=== PATIENT | female | born 2000 | race Caucasian/White ===

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

== ENCOUNTER 2020-04-29 16:32 | Emergency (ER) | payer BC ==
[~2020-04-29] VITALS: Ht 175.3 cm; Wt 99.8 kg
[~2020-04-29 16:32] MED LIST changes: +PREDNISONE20 MG PO; +VENTOLIN HFA18 GM INH
== END 2020-04-29 18:39 | disposition home or self-care (01) ==
LOC: ED 16:32
DX: S80.811A Abrasion, right lower leg, initial encounter (principal); W19.XXXA Unspecified fall, initial encounter
CPT/HCPCS: 99283

== ENCOUNTER 2022-07-16 20:47 | Emergency (ER) | payer OTHER ==
[~2022-07-16] VITALS: Ht 175.3 cm; Wt 103.0 kg
== END 2022-07-16 23:33 | disposition home or self-care (01) ==
LOC: ED 20:47
DX: J20.9 Acute bronchitis, unspecified (principal); Z20.822 Contact with and (suspected) exposure to COVID-19
CPT/HCPCS: 87502; 99283; A9270; U0003

== ENCOUNTER 2022-11-23 21:09 | Emergency (ER) | payer OTHER ==
[~2022-11-23] VITALS: Ht 175.3 cm; Wt 99.8 kg
[2022-11-23] MEDS ORDERED: ONDANSETRON ODT8 MG PO (22:50)
[2022-11-23] MEDS ORDERED: CYCLOBENZAPRINE10 MG PO (22:50)
== END 2022-11-23 23:24 | disposition home or self-care (01) ==
LOC: ED 21:09
DX: R05.9 Cough, unspecified (principal); R11.2 Nausea with vomiting, unspecified; B97.4 Respiratory syncytial virus as the cause of diseases classified elsewhere; Z20.822 Contact with and (suspected) exposure to COVID-19
CPT/HCPCS: 36415; 71045; 80048; 85025; 87502; 96374; 99283-25; A9270; C9803; J2405; J7121; U0003

== ENCOUNTER 2023-07-25 09:59 | Emergency (ER) | payer OTHER ==
[~2023-07-25] VITALS: Ht 175.3 cm; Wt 102.6 kg
[~2023-07-25 09:59] MED LIST changes: +CYCLOBENZAPRINE10 MG PO; +ONDANSETRON ODT8 MG PO
[2023-07-25 10:22] LABS: BASOPHILS 0.4 % (0-2); EOSINOPHILS 4.7 % (0-6); HEMATOCRIT 44.3 % (35.0-50.0); HEMOGLOBIN 14.8 g/dL (12.0-18.0); LYMPHOCYTES 19.4 % (24-44); MCH 29.7 (27-36); MCHC 33.5 g/dl (30-36); MCV 88.6 fl (81-99); MONOCYTES 5.3 % (0-12); NEUTROPHILS 70.2 % (39-80); PLATELET COUNT 282 K/uL (140-440); RDW 13.2 (10.5-15.0)
[2023-07-25 10:36] LABS: ALBUMIN 3.7 g/dL (3.4-5.0); ANION GAP 16.2 (7-21); BILIRUBIN, TOTAL 0.6 ng/dL (0.2-1.0); BUN/CREATININE RATIO 8.97 (6.0-28.6); CREATININE, SERUM 0.78 mg/dL (0.55-1.02); POTASSIUM 3.2 mmol/L (3.5-5.1); PROTEIN, TOTAL 7.4 g/dL (6.4-8.2)
[2023-07-25 11:03] LABS: INFLUENZA B NAA NEGATIVE (NEGATIVE); RESPIRATORY SYNCYTIAL VIR NAA NEGATIVE (NEGATIVE)
[2023-07-25] MEDS ORDERED: ONDANSETRON ODT8 MG PO (11:44)
[2023-07-25 12:02] VITALS: BP 139/78
== END 2023-07-25 12:02 | disposition home or self-care (01) ==
LOC: ED 09:59
PROVIDERS: Emergency Medicine
DX: B34.9 Viral infection, unspecified (principal); Z20.822 Contact with and (suspected) exposure to COVID-19
CPT/HCPCS: 36415; 80053; 83690; 85025; 87502; 96361; 96374; 96376; 99284-25; C9803; J2405; J7030; U0002

== ENCOUNTER 2024-09-12 02:36 | Emergency (ER) | payer OTHER ==
[~2024-09-12] VITALS: Ht 175.3 cm; Wt 94.1 kg
[2024-09-12] MEDS ORDERED: MACROBID 100 M100 MG PO (02:56)
[2024-09-12] MEDS ORDERED: PHENAZOPYRIDINE HCL 95 MG TAB PO ONE (03:00)
[2024-09-12] MEDS ORDERED: NITROFURANTOIN MONOHYD MACROCR 100 MG CAP PO ONE (03:00)
[2024-09-12 03:03] LABS: COLLECTION TYPE, URINE CLEAN CATCH
[2024-09-12 03:10] VITALS: BP 130/78
[2024-09-12 03:10] LABS: CRYSTALS, URINE NONE SEEN (0-1+); EPITHELIAL CELLS, URINE SQUAMOUS 3+ /lpf (0-1+)
[2024-09-12 03:11] LABS: BACTERIA, URINE RARE /hpf (negative); CASTS, URINE HYALINE 1+ \\lpf
[2024-09-12 03:12] LABS: REFLEX CULTURE, URINE No (No)
== END 2024-09-12 03:08 | disposition home or self-care (01) ==
LOC: ED 02:36
PROVIDERS: Internal Medicine
DX: N39.0 Urinary tract infection, site not specified (principal)
CPT/HCPCS: 81001; 84703; 99283

== ENCOUNTER 2024-10-26 11:37 | Emergency (ER) | payer OTHER ==
[~2024-10-26] VITALS: Ht 175.3 cm; Wt 93.0 kg
[~2024-10-26 11:37] MED LIST changes: +MACROBID 100 M100 MG PO
[2024-10-26] MEDS ORDERED: VENTOLIN HFA18 GM INH (11:51)
[2024-10-26] MEDS ORDERED: CEPHALEXIN MONOHYDRATE 500 MG CAP PO ONE (12:45)
[2024-10-26] MEDS ORDERED: HYDROCODONE/ACETA 7.5/325 TAB PO ONE (12:45)
[2024-10-26 13:56] VITALS: BP 107/70
[2024-10-26] MEDS ORDERED: HYDROCODON-ACE1 EA10 PO (14:14)
[2024-10-26] MEDS ORDERED: CEPHALEXIN500 M1 PO (14:14)
== END 2024-10-26 14:52 | disposition home or self-care (01) ==
LOC: ED 11:37
DX: S62.613B Displaced fracture of proximal phalanx of left middle finger, initial encounter for open fracture (principal); S66.222A Laceration of extensor muscle, fascia and tendon of left thumb at wrist and hand level, initial encounter; W23.0XXA Caught, crushed, jammed, or pinched between moving objects, initial encounter; J45.909 Unspecified asthma, uncomplicated; Z79.899 Other long term (current) drug therapy
CPT/HCPCS: 73140; A9270

== ENCOUNTER 2024-11-19 10:59 | Emergency (ER) | payer OTHER ==
[~2024-11-19] VITALS: Ht 175.3 cm; Wt 89.8 kg
[~2024-11-19 10:59] MED LIST changes: +CEPHALEXIN500 M1 PO; +HYDROCODON-ACE1 EA10 PO
--- OUTSIDE RECORDS SUMMARY | 2024-11-19 11:06 | XMS ---
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 E.D. VISIT COUNT (12 MO.) 4 [facility] TOTAL 5 NOTE: Visits indicate total known visits. ED/UCC VISIT TRACKING (12 MO.) 11/19/2024 11:00 [facility] TYPE: Emergency COMPLAINT: - POST OP PROBLEM 10/29/2024 16:46 [facility] TYPE: Emergency COMPLAINT: - WOUND CHECK 10/26/2024 23:54 [facility] TYPE: Emergency DIAGNOSES: - Displaced fracture of neck of unspecified metacarpal bone, initial encounter for open fracture - L MIDDLE FINGER 10/26/2024 11:37 [facility] TYPE: Emergency COMPLAINT: - LATERATION DIAGNOSES: - Caught, crushed, jammed, or pinched between moving objects, initial encounter - Displaced fracture of proximal phalanx of left middle finger, initial encounter for open fracture - Laceration of extensor muscle, fascia and tendon of left thumb at wrist and hand level, initial encounter - Other assisted (current) drug therapy - Unspecified asthma, uncomplicated 09/12/2024 02:36 [facility] TYPE: Emergency COMPLAINT: - UTI DIAGNOSES: - Urgency of urination - Urinary tract infection, site not specified INPATIENT VISIT TRACKING (12 MO.) No inpatient visits to display in this time frame [id number]
[2024-11-19] MEDS ORDERED: OXYCODONE HCL5 MG PO (11:13)
[2024-11-19] MEDS ORDERED: ONDANSETRON 4 MG TAB ODT SL ONE (11:45)
[2024-11-19 11:50] VITALS: BP 113/81
== END 2024-11-19 11:52 | disposition home or self-care (01) ==
LOC: ED 10:59
DX: A08.4 Viral intestinal infection, unspecified (principal); J45.909 Unspecified asthma, uncomplicated; Z98.890 Other specified postprocedural states
CPT/HCPCS: 99283; A9270

== ENCOUNTER 2024-12-12 11:29 | Emergency (ER) | payer OTHER ==
[~2024-12-12] VITALS: Ht 175.3 cm; Wt 93.9 kg
[~2024-12-12 11:29] MED LIST changes: +OXYCODONE HCL5 MG PO
--- OUTSIDE RECORDS SUMMARY | 2024-12-12 11:36 | XMS ---
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 E.D. VISIT COUNT (12 MO.) 5 [facility] TOTAL 6 NOTE: Visits indicate total known visits. ED/UCC VISIT TRACKING (12 MO.) 12/12/2024 11:30 [facility] TYPE: Emergency COMPLAINT: - WOUND CHECK 11/19/2024 11:00 [facility] TYPE: Emergency COMPLAINT: - POST OP PROBLEM DIAGNOSES: - Diarrhea, unspecified - Other specified postprocedural states - Unspecified asthma, uncomplicated - Viral intestinal infection, unspecified 10/29/2024 16:46 [facility] TYPE: Emergency COMPLAINT: - WOUND CHECK 10/26/2024 23:54 [facility] TYPE: Emergency DIAGNOSES: - Displaced fracture of [...] visits to display in this time frame [id number]
[2024-12-12 13:39] VITALS: BP 116/70
== END 2024-12-12 13:39 | disposition home or self-care (01) ==
LOC: ED 11:29
DX: Z48.01 Encounter for change or removal of surgical wound dressing (principal); J45.909 Unspecified asthma, uncomplicated; Z79.899 Other long term (current) drug therapy
CPT/HCPCS: 99282

== ENCOUNTER 2025-01-02 09:42 | Emergency (ER) | payer OTHER ==
[~2025-01-02] VITALS: Ht 175.3 cm; Wt 88.5 kg
--- OUTSIDE RECORDS SUMMARY | 2025-01-02 09:49 | XMS ---
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 E.D. VISIT COUNT (12 MO.) 6 [facility] TOTAL 7 NOTE: Visits indicate total known visits. ED/UCC VISIT TRACKING (12 MO.) 01/02/2025 09:42 [facility] TYPE: Emergency COMPLAINT: - VOMITING 12/12/2024 11:30 [facility] TYPE: Emergency COMPLAINT: - WOUND CHECK DIAGNOSES: - Encounter for change or removal of surgical wound dressing - Other alf (current) drug therapy - Unspecified asthma, uncomplicated 11/19/2024 11:00 [facility] TYPE: Emergency COMPLAINT: - POST OP PROBLEM DIAGNOSES: - Diarrhea, unspecified - Other specified postprocedural states - Unspecified asthma, uncomplicated - Viral intestinal infection, unspecified 10/29/2024 16:46 [facility] TYPE: Emergency COMPLAINT: - WOUND CHECK 10/26/2024 23:54 [facility] TYPE: Emergency DIAGNOSES: - Displaced [...] and hand level, initial encounter - Other alf (current) drug therapy - Unspecified asthma, uncomplicated 09/12/2024 02:36 [facility] TYPE: Emergency COMPLAINT: - UTI DIAGNOSES: - Urgency of urination - Urinary tract infection, site not specified INPATIENT VISIT TRACKING (12 MO.) No inpatient visits to display in this time frame [id number]
[2025-01-02] MEDS ORDERED: ALBUTEROL/IPRATROPIUM 3 ML NEB INH ONE (10:15)
[2025-01-02] MEDS ORDERED: SODIUM CHLORIDE 0.9% 1,000 ML IV PRN (10:15)
[2025-01-02] MEDS ORDERED: ondansetron HCL 4 MG/2 ML VIAL IV ONE (10:15)
[2025-01-02 10:23] LABS: BASOPHILS 0.6 % (0-2); EOSINOPHILS 2.2 % (0-6); HEMATOCRIT 41.9 % (35.0-50.0); HEMOGLOBIN 14.9 g/dL (12.0-18.0); LYMPHOCYTES 17.2 % (24-44); MCH 31.3 (27-36); MCHC 35.5 g/dl (30-36); MCV 88.2 fl (81-99); MONOCYTES 7.6 % (0-12); NEUTROPHILS 72.4 % (39-80); PLATELET COUNT 245 K/uL (140-440); RBC 4.75 M/ul (4.3-5.7); RDW 12.5 (10.5-15.0)
[2025-01-02 10:38] LABS: ALBUMIN 3.6 g/dL (3.4-5.0); ALBUMIN/GLOBULIN RATIO 0.95 (1.1-2.4); ANION GAP 16.1 (7-21); BILIRUBIN, TOTAL 0.6 mg/dL (0.2-1.0); BUN/CREATININE RATIO 8.45 (6.0-28.6); CORONAVIRUS COVID-19 AG NEGATIVE (NEGATIVE); CREATININE, SERUM 0.71 mg/dL (0.55-1.02); INFLUENZA A AG NEGATIVE (NEGATIVE); INFLUENZA B AG NEGATIVE (NEGATIVE); POTASSIUM 3.1 mmol/L (3.5-5.1); PROTEIN, TOTAL 7.4 g/dL (6.4-8.2)
[2025-01-02] MEDS ORDERED: POTASSIUM CHLORIDE 20 MEQ/15 ML CUP PO ONE (11:30)
[2025-01-02 12:33] LABS: BILIRUBIN, URINE POSITIVE (negative); BLOOD/HGB, URINE TRACE-I (Negative); KETONE, URINE >=80 (Negative); LEUK ESTERASE, URINE NEGATIVE (negative); NITRITE, URINE NEGATIVE (negative)
[2025-01-02 12:40] LABS: EPITHELIAL CELLS, URINE SQUAMOUS 3+ /lpf (0-1+)
[2025-01-02 12:41] LABS: BACTERIA, URINE RARE /hpf (negative); CASTS, URINE NONE SEEN \\lpf; COLLECTION TYPE, URINE CLEAN CATCH; CRYSTALS, URINE NONE SEEN (0-1+); RED BLOOD CELLS, URINE 0-1 /hpf (0-5); REFLEX CULTURE, URINE No (No); WHITE BLOOD CELLS, URINE 0-1 /HPF (0-5)
[2025-01-02] MEDS ORDERED: ONDANSETRON ODT4 MG PO (13:39)
[2025-01-02 13:44] VITALS: BP 124/73
== END 2025-01-02 13:45 | disposition home or self-care (01) ==
LOC: ED 09:42
PROVIDERS: Emergency Medicine
DX: R11.2 Nausea with vomiting, unspecified (principal); E87.6 Hypokalemia; J45.909 Unspecified asthma, uncomplicated; Z79.899 Other long term (current) drug therapy
CPT/HCPCS: 36415; 80053; 81001; 83690; 84703; 85025; 94640; 96361; 96374; 99284-25; A9270; J2405; J7030